=== PATIENT | female | born 2000 | race Hispanic/Latino ===

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

== ENCOUNTER 2023-09-29 21:37 | Emergency (ER) | payer MEDICAID ==
[~2023-09-29] VITALS: Ht 160 cm; Wt 93.0 kg
[~2023-09-29 21:37] MED LIST: PREN1TAB89 PO
[2023-09-29 22:13] LABS: RAPID GROUP A STREP negative (NEGATIVE)
[2023-09-29 22:18] LABS: SARS-CoV-2, RNA, NAAT NEGATIVE SARS CoV-2 (NEGATIVE)
[2023-09-29 22:23] LABS: INFLUENZA TYPE A Negative For Type A (NEGATIVE); INFLUENZA TYPE B Negative For Type B (NEGATIVE)
[2023-09-30] VITALS: BP 120/75; PULSE 75; RESP 19; O2SAT 100
[2023-09-30] MEDS: ACETAMINOPHEN 500 MG TABLET PO ONE (01:05)
[2023-09-30 02:09] VITALS: TEMP 99
[2023-09-30 02:32] LABS: APPEARANCE,URINE CLEAR (CLEAR); BILIRUBIN,URINE NEGATIVE (NEGATIVE); COLOR,URINE YELLOW (YELLOW); GLUCOSE, URINE (UA) NEGATIVE (NEGATIVE); KETONES,URINE NEGATIVE (NEGATIVE); LEUKOCYTE ESTERASE ,URINE 25 Leu/uL (NEGATIVE); NITRATE,URINE NEGATIVE (NEGATIVE); OCCULT BLOOD,URINE NEGATIVE (NEGATIVE); PROTEIN,URINE 20 mg/dL (NEGATIVE)
[2023-09-30 02:34] LABS: ADD UA MICROSCOPIC YES
[2023-09-30 03:03] LABS: BACTERIA,URINE FEW /HPF (None Seen); CALCIUM OXALATE CRYSTALS,UR RARE /LPF (None Seen); MUCUS,URINE FEW LPF (None Seen); SQUAMOUS EPITHELIAL CELL,UR FEW /HPF (0-2)
== END 2023-09-30 04:04 | disposition home or self-care (01) ==
LOC: EDH 21:37
DX: O98.511 Other viral diseases complicating pregnancy, first trimester (principal); J06.9 Acute upper respiratory infection, unspecified; Z20.822 Contact with and (suspected) exposure to COVID-19; Z3A.08 8 weeks gestation of pregnancy
CPT/HCPCS: 81001; 87635; 87804; 87880

== ENCOUNTER 2024-04-22 00:36 | Observation (INO) | payer MEDICAID ==
[~2024-04-22] VITALS: Ht 160 cm; Wt 101.7 kg
[2024-04-22 00:37] VITALS: BP 112/69; PULSE 84; RESP 20; TEMP 98.4
[2024-04-22 01:12] LABS: APPEARANCE,URINE CLOUDY (CLEAR); BILIRUBIN,URINE NEGATIVE (NEGATIVE); COLOR,URINE YELLOW (YELLOW); GLUCOSE, URINE (UA) NEGATIVE (NEGATIVE); KETONES,URINE 5 mg/dL (NEGATIVE); LEUKOCYTE ESTERASE ,URINE 250 Leu/uL (NEGATIVE); NITRATE,URINE NEGATIVE (NEGATIVE); OCCULT BLOOD,URINE SMALL (NEGATIVE); PROTEIN,URINE 50 mg/dL (NEGATIVE)
[2024-04-22 01:13] LABS: ADD UA MICROSCOPIC YES
[2024-04-22 01:16] LABS: MUCUS,URINE FEW LPF (None Seen); SQUAMOUS EPITHELIAL CELL,UR MANY /HPF (0-2)
== END 2024-04-22 02:08 | disposition home or self-care (01) ==
LOC: EDH 00:36 → LDH 00:46 → INTOOBSV 00:46 → OBSVTOIN 00:46
PROVIDERS: ADMIT Obstetrics & Gynecology; ATTEND Obstetrics & Gynecology
DX: O62.9 Abnormality of forces of labor, unspecified (principal); Z3A.39 39 weeks gestation of pregnancy; Z87.891 Personal history of nicotine dependence; Z79.899 Other long term (current) drug therapy
CPT/HCPCS: 87086; 81001; G0379; G0378